=== PATIENT | male | born 1960 | race Caucasian/White ===

== ENCOUNTER 2021-01-14 19:05 | Emergency (ER) | payer OTHER ==
[~2021-01-14] VITALS: Ht 195.6 cm; Wt 97.7 kg
[2021-01-14] MEDS ORDERED: diazePAM 5 MG TABLET. PO ONE (19:30)
--- NOTE | 2021-01-14 19:31 | PHYS DOC ---
Past History Past Medical History: Cancer, High Cholesterol (LENNY FAIRBANKS APRN) Past Surgical History: Other Additional Past Surgical Histo: Thirod (LENNY FAIRBANKS APRN) Alcohol Use: None (LENNY FAIRBANKS APRN) Adult General Chief Complaint Chief Complaint: MECHANICAL FALL HPI HPI Patient is a 61-year-old male reports an approximately 530 this evening he was climbing up an aluminum stepladder from step forward to step 5 when it collapsed and he landed on his right side. Patient reports severe right lower rib pain. Patient states he took 800 mg of Motrin and a oxycodone without relief. Patient states it is very difficult to take a breath without his rib hurting on his lower right side. Patient denies any anterior chest pain, cough, congestion, abdominal pains, headaches, dizzy spells. Patient states he did not pass out, patient states he slipped from an aluminum ladder. Patient reports his last tetanus immunization was greater than 5 years ago. Patient states he had his thyroid removed years ago. Patient denies any allergies to medications, states he only takes Lipitor. Patient reports his primary care physician is Dr. Caleb Galindo. Patient denies any other physical injuries or physical concerns. (LENNY FAIRBANKS APRN) Review of Systems Review of Systems 14 body systems of review of systems have been reviewed. See HPI for pertinent positives and negative responses, otherwise all other systems are negative, nonpertinent or noncontributory. (LENNY FAIRBANKS APRN) Current Medications Current Medications Current Medications Medications (Trade) Dose Ordered Sig/Latrice Start Time Stop Time Status Last Admin Dose Admin Diazepam (Valium) 10 mg 1X ONCE 01/14/21 19:30 01/14/21 19:31 01/14/21 19:28 10 MG Fentanyl Citrate (Fentanyl 2ml Vial) 100 mcg 1X ONCE 01/14/21 19:30 01/14/21 19:31 01/14/21 19:29 100 MCG (LENNY FAIRBANKS APRN) Allergies Allergies Allergies Coded Allergies Type Severity Reaction Last Updated Verified No Known Drug Allergies 01/14/21 No (LENNY FAIRBANKS APRN) Physical Exam Physical Exam Constitutional: Well developed, well nourished, in mild distress, non-toxic appearance. HENT: Normocephalic, atraumatic. Eyes: conjunctiva normal, no discharge. Neck: Normal range of motion, no tenderness, supple, no stridor. Cardiovascular:Heart rate regular rhythm, no murmur, heart sounds S1-S2 auscultation. Lungs & Thorax: Bilateral breath sounds clear to auscultation no adventitious lung sounds appreciated. No pain to palpation along anterior thorax, no bruising appreciated to the anterior thorax. Abdomen: Bowel sounds normal, soft, no tenderness, no masses, no pulsatile masses. No bruising appreciated to the abdomen. Skin: Warm, dry, no erythema, no rash. Patient does have skin abrasion to the lateral lower right side rib flank area, no bleeding appreciated, no infectious process appreciated. Back: No CVA tenderness on the left or right, positive tenderness to palpation near right lower ribs area posterior lateral, no crepitus appreciated, no subcu air appreciated. Extremities: No tenderness, no cyanosis, no clubbing, ROM intact, no edema. Neurologic: Alert and oriented X 3, normal motor function, normal sensory function, no focal deficits noted. Psychologic: Affect normal, judgement normal, mood normal. (LENNY FAIRBANKS APRN) Current Patient Data Vital Signs Vital Signs Date Time Temp Pulse Resp B/P (MAP) Pulse Ox O2 Delivery O2 Flow Rate FiO2 01/14/21 19:29 18 96 Room Air 01/14/21 19:12 98.6 84 123/81 (95) (LENNY FAIRBANKS APRN) EKG EKG [] (LENNY FAIRBANKS APRN) Radiology/Procedures Radiology/Procedures PATIENT: JEREMY ORTEGA ACCOUNT: [id number] : 1960 LOCATION: ER AGE: 61 SEX: M EXAM STATUS: REG ER ORD. PHYSICIAN: LENNY FAIRBANKS APRN REASON: FALL, RT LOW RIB PAIN PROCEDURE: RIBS RIGHT AND PA CHEST Exam: Right RIBS with PA chest INDICATION: Fall, right lower rib pain TECHNIQUE: Frontal view of the chest with frontal and oblique views of the right ribs Comparisons: None FINDINGS: The cardiomediastinal silhouette and pulmonary vessels are within normal limits. The lung and pleural spaces are clear. Mildly displaced fracture of the right lateral eighth rib. IMPRESSION: 1. Mildly displaced right lateral eighth rib fracture. 2. No acute cardiopulmonary process. Electronically signed by: Sneha Ryan MD (01/14/2021 7:57 PM) [facility] DICTATED AND SIGNED BY: SNEHA RYAN MD DATE: 01/14/211952 CC: LENNY FAIRBANKS APRN; PCP,UNKNOWN ~MTH0 0 (LENNY FAIRBANKS APRN) Heart Score C/O Chest Pain: No Risk Factors: Risk Factors: DM, Current or recent (<one month) smoker, HTN, HLP, family history of CAD, obesity. Risk Scores: Risk Factors: DM, Current or recent (<one month) smoker, HTN, HLP, family history of CAD, obesity. (LENNY FAIRBANKS APRN) Course & Med Decision Making Course & Med Decision Making Pertinent Labs and Imaging studies reviewed. (See chart for details) 61-year-old male, vital signs reviewed, presents to the emergency department complaining of right lower rib pain after his aluminum ladder collapsed when he was stepping between steps 4 to 5. Patient physical examination concerning for possible rib fractures versus rib contusions. Low likelihood of pneumothorax, patient is not hypoxic, normal lung sounds appreciated all lung méndez. Patient does have abrasion just under right ribs area, physical injury consistent with patient's description of events. Patient continues to have severe pain after trying to self treat at home with oral ibuprofen and 1 tablet oxycodone which his son gave him. Patient states his son had oral surgery and did not take his pain medications and had some leftover. Will order rib series, give 10 mg p.o. Valium for muscular spasm elicited during palpation, 100 mcg fentanyl IM for acute pain. After period of time will reassess pain control. The patient's tetanus status was brought up-to-date in the emergency department, discussed patient case with ED attending Dr. Truong who has taken over patient care for end of shift report. Dr. Truong asked for me to continue care of this patient, patient refused his IV, CT scan, lab work, discussed with patient diagnosis of broken rib, will discharge to home with p.o. pain medications, strict follow-up with Dr. Galindo tomorrow, return to ER precautions or concerns. Upon reevaluation of the patient, the patient appears to be more comfortable, rates his pain an 8/10 on a 1-10 pain scale, the patient remains nontoxic in appearance, the patient is not hypoxic, he remains hemodynamically stable. Patient gave verbal understanding of discharge home instructions, follow-up with Dr. Galindo tomorrow, return to ER precautions and concerns, the patient had no further questions or concerns and was discharged home without incident. (LENNY FAIRBANKS APRN) Course & Med Decision Making Did not see or evaluate patient personally. Agree with DIE PRESSER's work-up and disposition per note. (MINDY TRUONG MD) Dragon Disclaimer Dragon Disclaimer This electronic medical record was generated, in whole or in part, using a voice recognition dictation system. (LENNY FAIRBANKS APRN) Departure Departure: Impression: Primary Impression: Rib fracture Additional Impression: Abrasion Disposition: HOME / SELF CARE / HOMELESS Condition: GOOD Referrals: PCP,UNKNOWN (PCP) CALEB CÁRDENAS Patient Instructions: Abrasions, Rib Fracture Additional Instructions: You were seen today in the emergency department for rib pain after a fall, you have a broken rib on the right side, this can be very painful, I am giving you some medications for acute pain, however he please call Dr. Galindo tomorrow and let her know of your broken rib, Dr. Galindo can follow your pain management. Please return to the emergency department immediately for increased shortness of breath or increase chest pain unrelieved by your pain medications. Please keep your abrasions on your right side clean and dry, apply antibiotic ointment. EMERGENCY DEPARTMENT GENERAL DISCHARGE INSTRUCTIONS Thank you for coming to [facility] (ED) today and trusting us with you care. We trust that you had a positivie experience in our Emergency Department. If you wish to speak to the department management, you may call the director at [phone]. YOUR FOLLOW UP INSTRUCTIONS ARE FOLLOWS: 1. Do you have a private Doctor? If you do not have a private doctor, please ask for a resource list of physicians or clinics that may be able to assist you with follow up care. 2. The Emergency Physician has interpreted your x-rays. The X-Ray specialist will also review them. If there is a change in the findings, you will be notified in 48 hours when at all possible. 3. A lab test or culture has been done, your results will be reviewed and you will be notified if you need a change in treatment. ADDITIONAL INSTRUCTIONS AND INFORMATION: 1. Your care today has been supervised by a physician who is specially trained in emergency care. Many problems require more than one evaluation for a complete diagnosis and treatment. We recommend that you schedule your follow up appointment as recommended to ensure complete treatment of you illness or injury. If you are unable to obtain follow up care and continue to have a problem, or if your condition worsens, we recommend that you return to the ED. 2. We are not able to safely determine your condition over the phone nor are we able to give sound medical advice over the phone. For these safety reasons, if you call for medical advice we will ask you to come to the ED for further evaluation. 3. If you have any questions regarding these discharge instructions please call the ED at [phone]. SAFETY INFORMATION: In the interest of safety, wellness, and injury prevention; we encourage you to wear your sealbelt, if you smoke; quite smoking, and we encourage family to use a protective helmet for bicycling and other sporting events that present an increased risk for head injury. IF YOUR SYMPTOMS WORSEN OR NEW SYMPTOMS DEVELOP, OR YOU HAVE CONCERNS ABOUT YOUR CONDITION; OR IF YOUR CONDITION WORSENS WHILE YOU ARE WAITING FOR YOUR FOLLOW UP APPOINTMENT; EITHER CONTACT YOUR PRIMARY CARE DOCTOR, THE PHYSICIAN WHOSE NAME AND NUMBER YOU WERE GIVEN, OR RETURN TO THE ED IMMEDIATELY. Scripts Ibuprofen (IBUPROFEN) 600 Mg Tablet 600 MG PO TID PRN PRN for PAIN, #20 TAB 0 Refills Prov: LENNY FAIRBANKS APRN 01/14/21 Hydrocodone Bit/Acetaminophen (HYDROCODONE-APAP 7.5-325 ) 1 Each Tablet 1 TAB PO PRN Q6HRS PRN for PAIN, #15 TAB 0 Refills Prov: LENNY FAIRBANKS APRN 01/14/21 Problem Qualifiers Primary Impression: Rib fracture Encounter type: initial encounter Rib fracture type: single rib Fracture type: closed Laterality: right Qualified Codes: S22.31XA - Fracture of one rib, right side, initial encounter for closed fracture LENNY FAIRBANKS APRN January 14, 2021 19:31 MINDY TRUONG MD January 14, 2021 21:07
[2021-01-14] MEDS ORDERED: DIPH,PERTUSS(ACELL),TET VAC/PF 0.5 ML SYRINGE. VAX IM ONE (19:45)
--- NOTE | 2021-01-14 19:59 | RAD ---
Exam: Right RIBS with PA chest INDICATION: Fall, right lower rib pain TECHNIQUE: Frontal view of the chest with frontal and oblique views of the right ribs Comparisons: None FINDINGS: The cardiomediastinal silhouette and pulmonary vessels are within normal limits. The lung and pleural spaces are clear. Mildly displaced fracture of the right lateral eighth rib. IMPRESSION: 1. Mildly displaced right lateral eighth rib fracture. 2. No acute cardiopulmonary process. Electronically signed by: Sneha Lopez MD (01/14/2021 7:57 PM) [facility]
[2021-01-14] MEDS ORDERED: HYDROmorphone PF 1 MG/ML DISP.SYRIN IVP ONE (20:00)
[2021-01-14 20:03] VITALS: BP 107/69
[2021-01-14] MEDS ORDERED: BACITRACIN ZINC TOPICAL OINT PACKET. TP ONE ×2 (20:26→20:45)
[2021-01-14] MEDS ORDERED: IBUP600T16 PO (20:28)
[2021-01-14] MEDS ORDERED: HYDR-2765 PO (20:28)
== END 2021-01-14 20:37 | disposition home or self-care (01) ==
LOC: ER 19:05
DX: S22.31XA Fracture of one rib, right side, initial encounter for closed fracture (principal); E78.00 Pure hypercholesterolemia, unspecified; W11.XXXA Fall on and from ladder, initial encounter; Y93.89 Activity, other specified; Y92.89 Other specified places as the place of occurrence of the external cause; Y99.8 Other external cause status
CPT/HCPCS: 71101; 90471; 90715; 96374; 99284; J3010; 99283